=== PATIENT | female | born 1990 | race Two or more races ===

== ENCOUNTER 2017-08-09 01:46 | Emergency (ER) | payer OTHER ==
[2017-08-09] MEDS: LIDOCAINE/MYLANTA 40 ML BTL PO (04:15)
[2017-08-09] MEDS: FAMOTIDINE 20 MG INJ IV (04:42)
[2017-08-09] MEDS: ONDANSETRON 4 MG INJ IV (04:42)
[2017-08-09] MEDS: HYDROmorphONE 0.5 MG/0.5 ML SYG IV (04:42)
[2017-08-09 04:50] LABS: ADD MAN DIFF? NO
[2017-08-09 04:53] LABS: WHITE BLOOD COUNT 11.1 10^3/ul (4.8-10.8)
[2017-08-09 04:53] LABS: BASOPHILS % 0.3 % (0.0-2.0); EOSINOPHILS # 0.4 10^3/ul (0.0-0.5); EOSINOPHILS % 3.8 % (0.0-7.0); HEMATOCRIT 41.5 % (37.0-47.0); HEMOGLOBIN 14.2 g/dl (12.0-16.0); LYMPHOCYTES # 2.2 10^3/ul (0.8-2.9); LYMPHOCYTES % 19.8 % (15.0-51.0); MEAN CORPUSCULAR HEMOGLOBIN 30.5 pg (29.0-33.0); MEAN CORPUSCULAR HGB CONC 34.2 g/dl (32.0-37.0); MEAN CORPUSCULAR VOLUME 89.2 fl (82.0-101.0); MEAN PLATELET VOLUME 10.6 fl (7.4-10.4); MONOCYTE # 0.6 10^3/ul (0.3-0.9); MONOCYTES % 5.2 % (0.0-11.0); NEUTROPHIL # 7.9 10^3/ul (1.6-7.5); NEUTROPHILS % 70.6 % (39.0-77.0); PLATELET COUNT 297 10^3/UL (140-415); RED BLOOD COUNT 4.65 10^6/ul (4.20-5.40); RED CELL DISTRIBUTION WIDTH 12.1 % (11.5-14.5)
[2017-08-09 05:13] LABS: ALANINE AMINOTRANSFERASE 41 IU/L (13-69); ALBUMIN 4.1 g/dl (3.3-4.9); ALBUMIN/GLOBULIN RATIO 1.41; ALKALINE PHOSPHATASE 84 IU/L (42-121); ANION GAP 17 (8-16); ASPARTATE AMINO TRANSFERASE 32 IU/L (15-46); BILIRUBIN,INDIRECT 0.2 mg/dl (0-1.1); BILIRUBIN,TOTAL 0.2 mg/dl (0.2-1.3); BLOOD UREA NITROGEN 13 mg/dl (7-20); CALCIUM 9.5 mg/dl (8.4-10.2); CARBON DIOXIDE 24 mmol/L (21-31); CHLORIDE 105 mmol/L (97-110); CREATININE 0.59 mg/dl (0.44-1.00); GLUCOSE 113 mg/dl (70-220); LIPASE 138 U/L (23-300); POTASSIUM 3.9 mmol/L (3.5-5.1); SODIUM 142 mmol/L (135-144)
[2017-08-09] MEDS ORDERED: ONDANSETRON (ODT) 4 MG TAB ODT ×2 (05:50→06:06)
[2017-08-09] MEDS: ONDANSETRON (ODT) 4 MG TAB ODT (06:27)
== END 2017-08-09 06:09 | disposition home or self-care (01) ==
LOC: E/R 01:46
DX: K29.70 Gastritis, unspecified, without bleeding (principal); K59.00 Constipation, unspecified
CPT/HCPCS: 36415; 76705; 80053; 83690; 85025; 96374; 96375; 99285-25

== ENCOUNTER 2017-08-13 10:09 | Emergency (ER) | payer OTHER | END 2017-08-13 10:18 | disposition home or self-care (01) | LOC: E/R 10:18 → FTE 10:09 | DX: R10.13 Epigastric pain (principal) | CPT/HCPCS: 99282 ==

== ENCOUNTER 2017-12-21 14:17 | Emergency (ER) | payer SELFPAY, OTHER | END 2017-12-21 15:46 | disposition left against medical advice (07) | LOC: FTE 15:46 | DX: Z53.21 Procedure and treatment not carried out due to patient leaving prior to being seen by health care provider (principal) ==

== ENCOUNTER 2017-12-21 21:57 | Emergency (ER) | payer OTHER | END 2017-12-22 02:07 | disposition home or self-care (01) | LOC: FTE 21:57 | DX: A08.4 Viral intestinal infection, unspecified (principal) | CPT/HCPCS: 99284 ==